=== PATIENT | male | born 1990 | race American Indian/Alaskan Native ===

== ENCOUNTER 2020-09-04 12:42 | Inpatient (IN) | payer OTHER, SELFPAY ==
--- NOTE | 2020-09-04 13:18 | XRay Report ---
CHEST 2 VIEWS INDICATION / CLINICAL INFORMATION: sob. COMPARISON: None available. FINDINGS: SUPPORT DEVICES: None. HEART / MEDIASTINUM: No significant abnormality. LUNGS / PLEURA: Pulmonary opacities are present throughout both lungs in a pattern worrisome for mult ifocal viral pneumonia. No significant pleural effusion. No pneumothorax. ADDITIONAL FINDINGS: No significant additional findings. IMPRESSION: 1. Bilateral pulmonary opacities are present, concerning for multifocal viral pneumonia. Please corre late clinically. Signer Name: Qian Sullivan MD Signed: 09/04/2020 1:14 PM Workstation Name: [id number]
[2020-09-04] MEDS ORDERED: SODIUM CHLORIDE 0.9% 1000 ML 1,000 ML IV ONE (13:20)
--- NOTE | 2020-09-04 13:37 | Emergency Department Report ---
ED General Adult HPI - General Chief complaint: Upper Respiratory Infection Stated complaint: FEVER/FATIGUE/COLD SYMPTOMS Time Seen by Provider: 09/04/20 13:18 Source: patient Mode of arrival: Ambulatory Limitations: No Limitations - History of Present Illness Initial comments: This is a 79-year old man with no prior medical history. He states he has felt ill for the past several days, coughing week and short of breath. He has had alteration of. Taste and smell. He had a Covid test this morning with pending result. He decided to present to the emergency department for the above symptoms. He was found to have a pulse oximetry of 89% in triage. High flow O2 has been ordered. -: Gradual, days(s) Associated Symptoms: denies other symptoms, shortness of breath, weakness - Related Data Allergies Allergy/AdvReac Type Severity Reaction Status Date / Time No Known Allergies Allergy Unverified 09/04/20 12:46 ED Review of Systems ROS: Stated complaint: FEVER/FATIGUE/COLD SYMPTOMS Other details as noted in HPI Constitutional: fever, weakness. denies: chills Eyes: denies: eye pain, eye discharge, vision change ENT: other (Change in taste). denies: ear pain, throat pain Respiratory: cough, shortness of breath. denies: wheezing Cardiovascular: denies: palpitations Endocrine: no symptoms reported Gastrointestinal: denies: abdominal pain, nausea, diarrhea Genitourinary: denies: urgency, dysuria Musculoskeletal: denies: back pain, joint swelling, arthralgia Skin: denies: rash, lesions Neurological: denies: headache, weakness, paresthesias Psychiatric: denies: anxiety, depression Hematological/Lymphatic: denies: easy bleeding, easy bruising ED Past Medical Hx - Past Medical History Previous Medical History?: No - Surgical History Past Surgical History?: No - Family History Family history: no significant - Social History Substance Use Type: None ED Physical Exam - General Limitations: No Limitations General appearance: alert, in no apparent distress - Head Head exam: Present: atraumatic, normocephalic - Eye Eye exam: Present: normal appearance. Absent: scleral icterus - ENT ENT exam: Present: mucous membranes moist - Neck Neck exam: Present: normal inspection - Respiratory Respiratory exam: Present: normal lung sounds bilaterally. Absent: respiratory distress - Cardiovascular Cardiovascular Exam: Present: regular rate, normal rhythm. Absent: systolic murmur, diastolic murmur, rubs, gallop - GI/Abdominal GI/Abdominal exam: Present: soft, normal bowel sounds. Absent: distended, tenderness, guarding, rebound - Rectal Rectal exam: Present: deferred - Extremities Exam Extremities exam: Present: normal inspection - Back Exam Back exam: Present: normal inspection - Neurological Exam Neurological exam: Present: alert, oriented X3, CN II-XII intact. Absent: motor sensory deficit - Psychiatric Psychiatric exam: Present: normal affect, normal mood - Skin Skin exam: Present: warm, dry, intact, normal color. Absent: rash ED Course Vital Signs 09/04/20 12:48 Temperature 99.7 F H Pulse Rate 102 H Respiratory 20 Rate Blood Pressure 146/92 O2 Sat by Pulse 91 Oximetry - Reevaluation(s) Reevaluation #1: Fluids, empiric antibiotics, consult ID, admitted by hospitalist staff Dr. Lewis. 09/04/20 14:39 ED Medical Decision Making - Lab Data Result diagrams: 09/04/20 13:30 09/04/20 13:30 Laboratory Results - last 24 hr 09/04/20 09/04/20 09/04/20 13:30 13:30 13:30 WBC 11.9 H RBC 4.86 Hgb 14.9 Hct 42.8 MCV 88 MCH 31 MCHC 35 H RDW 12.7 L Plt Count 228 Lymph % (Auto) 12.8 L [place] % (Auto) 12.2 H Eos % (Auto) 4.5 H Baso % (Auto) 0.5 Lymph # (Auto) 1.5 [place] # (Auto) 1.5 H Eos # (Auto) 0.5 H Baso # (Auto) 0.1 Seg Neutrophils % 70.0 Seg Neutrophils # 8.3 H D-Dimer Sodium 136 L Potassium 3.7 Chloride 93.9 L Carbon Dioxide 28 Anion Gap 18 BUN 17 Creatinine 2.3 H Estimated GFR 34 BUN/Creatinine Ratio 7 Glucose 94 Lactic Acid 1.00 Calcium 9.6 Magnesium Total Bilirubin 0.90 Direct Bilirubin 0.4 H Indirect Bilirubin 0.5 AST 54 H ALT 50 Alkaline Phosphatase 109 Lactate Dehydrogenase C-Reactive Protein Total Protein 7.9 Albumin 3.6 L Albumin/Globulin Ratio 0.8 09/04/20 09/04/20 13:30 13:38 WBC RBC Hgb Hct MCV MCH MCHC RDW Plt Count Lymph % (Auto) [place] % (Auto) Eos % (Auto) Baso % (Auto) Lymph # (Auto) [place] # (Auto) Eos # (Auto) Baso # (Auto) Seg Neutrophils % Seg Neutrophils # D-Dimer 570.70 H Sodium Potassium Chloride Carbon Dioxide Anion Gap BUN Creatinine Estimated GFR BUN/Creatinine Ratio Glucose Lactic Acid Calcium Magnesium 2.30 Total Bilirubin Direct Bilirubin Indirect Bilirubin AST ALT Alkaline Phosphatase Lactate Dehydrogenase 456 H C-Reactive Protein 24.20 H Total Protein Albumin Albumin/Globulin Ratio - Radiology Data Radiology results: image reviewed X-ray shows bilateral infiltrates highly suggestive of COVID-19 infection Critical care attestation.: If time is entered above; I have spent that time in minutes in the direct care of this critically ill patient, excluding procedure time. ED Disposition Clinical Impression: COVID-19 virus infection, Acute kidney injury Bilateral pneumonia Qualifiers: Pneumonia type: due to unspecified organism Lung location: unspecified part of lung Qualified Code(s): J18.9 - Pneumonia, unspecified organism Disposition: OP ADMIT IP TO THIS HOSP Is pt being admited?: Yes Does the pt Need Aspirin: Yes Condition: Stable Instructions: Bacterial Pneumonia (ED) Time of Disposition: 14:40
[2020-09-04 13:48] LABS: Basophils # (Auto) 0.1 K/mm3 (0.0-0.1); Basophils % (Auto) 0.5 % (0.0-1.8); Eosinophils # (Auto) 0.5 K/mm3 (0.0-0.4); Eosinophils % (Auto) 4.5 % (0.0-4.3); Hematocrit 42.8 % (35.5-45.6); Hemoglobin 14.9 gm/dl (11.8-15.2); Lymphocytes # (Auto) 1.5 K/mm3 (1.2-5.4); Lymphocytes % (Auto) 12.8 % (13.4-35.0); Mean Corpuscular HGB Conc 35 % (32-34); Mean Corpuscular Volume 88 fl (84-94); Monocytes # (Auto) 1.5 K/mm3 (0.0-0.8); Monocytes % (Auto) 12.2 % (0.0-7.3); Platelet Count 228 K/mm3 (140-440); Red Blood Count 4.86 M/mm3 (3.65-5.03); Red Cell Distribution Width 12.7 % (13.2-15.2)
[2020-09-04] MEDS ORDERED: AZITHROMYCIN 500 MG in SODIUM CHLORIDE 0.9% 250ML 250 ML IV ONE (14:00)
[2020-09-04 14:12] LABS: Albumin 3.6 g/dL (3.9-5); Bilirubin,Direct 0.4 mg/dL (0-0.2); Calcium 9.6 mg/dL (8.4-10.2)
[2020-09-04 14:14] LABS: C-Reactive Protein 24.2 mg/dL (0.00-1.30)
[2020-09-04] MEDS ORDERED: ONDANSETRON 4 MG/2 ML INJ IV PRN (14:26)
[2020-09-04] MEDS ORDERED: ACETAMINOPHEN 325 MG TAB PO PRN (14:26)
--- NOTE | 2020-09-04 14:33 | History and Physical Report ---
History of Present Illness Chief complaint: I feel sick, I cant breathe, I cant smell or taste anything History of present illness: 29 YO Male with obesity presents to ED for evaluation. Patient states that he had been "feeling sick" over the past 4 days with progressively worsening symptoms over the same timeframe. Patient knowledges dry cough, shortness of breath, loss of taste sense of taste, loss of sense of smell, body aches, fatigue. Patient transported to [facility] via private vehicle for further care and evaluation of the aforementioned symptoms. Patient seen and evaluated in the emergency department. Lab and imaging studies reviewed. Patient underwent chest x-ray and was found to have bilateral pneumonia. Patient also was found to have a pulse oximetry of 86% with exertion on room air which is consistent with acute hypoxemic respiratory failure. The patient was placed on high flow supplemental oxygen in the emergency department. The patient was initiated on pneumonia protocol as well as COVID-19 protocol. Coronavirus PCR was ordered and is pending at time of admission. Patient denies fever, chills, chest pain, palpitations, skin rash, recent ill contacts, or known exposure to COVID-19. No medication listed at time of admission. No prior admission for review. Infectious disease service consulted in ED. Past History Past Medical History: other (See HPI) Past Surgical History: No surgical history, Other (Reviewed) Social history: single. denies: smoking, alcohol abuse, prescription drug abuse Family history: no significant family history Medications and Allergies Allergies Allergy/AdvReac Type Severity Reaction Status Date / Time No Known Allergies Allergy Unverified 09/04/20 12:46 Active Meds: Active Medications Acetaminophen (Tylenol) 650 mg PO Q4H PRN PRN Reason: Pain MILD(1-3)/Fever >100.5/MCKENZIE Dexamethasone (Decadron) 4 mg IV ONCE ONE Stop: 09/04/20 14:30 Heparin Sodium (Porcine) (Heparin) 5,000 unit SUB-Q Q12HR MONI Azithromycin 500 mg/ Sodium (Chloride) 250 mls @ 250 mls/hr IV ONCE ONE; Protocol Stop: 09/04/20 14:59 Ceftriaxone Sodium (Rocephin/Ns 2 Gm/100 Ml) 2 gm in 100 mls @ 200 mls/hr IV Q24HR MONI; Protocol Stop: 09/07/20 23:59 Azithromycin 500 mg/ Sodium (Chloride) 250 mls @ 250 mls/hr IV Q24HR [facility]; Protocol Stop: 09/07/20 23:59 Methylprednisolone Sodium Succinate (Solu-Medrol) 40 mg IV Q8HR MONI Ondansetron HCl (Zofran) 4 mg IV Q8H PRN PRN Reason: Nausea And Vomiting Sodium Chloride (Sodium Chloride Flush Syringe 10 Ml) 10 ml IV BID MONI Sodium Chloride (Sodium Chloride Flush Syringe 10 Ml) 10 ml IV PRN PRN PRN Reason: LINE FLUSH Review of Systems Constitutional: fatigue, weakness, malaise, no weight loss, no weight gain, no fever, no chills Ears, nose, mouth and throat: no ear pain, no ear discharge, no tinnitis, no decreased hearing, no nose pain Cardiovascular: no orthopnea, no palpitations, no rapid/irregular heart beat, no edema, no syncope Respiratory: cough, cough with sputum, shortness of breath, no wheezing, no pleurisy Gastrointestinal: no nausea, no vomiting, no diarrhea, no constipation Genitourinary Male: no hematuria, no flank pain, no discharge, no urinary frequency, no urinary hesitancy Rectal: no pain, no incontinence, no bleeding Musculoskeletal: no neck stiffness, no neck pain, no arm numbness/tingling, no low back pain, no shooting leg pain Integumentary: no rash, no pruritis, no redness, no sores, no wounds Neurological: no head injury, no transient paralysis, no paralysis, no weakness, no parathesias, no seizures Psychiatric: no anxiety, no memory loss, no change in sleep habits, no sleep disturbances, no insomnia, no hypersomnia, no change in appetite, no change in libido Endocrine: no cold intolerance, no polyphagia, no excessive thirst, no polyuria, no nocturia, no excessive sweating Hematologic/Lymphatic: no easy bruising, no easy bleeding, no lymphadenopathy Allergic/Immunologic: no urticaria, no allergic rhinitis, no wheezing, no persistent infections, no anaphylaxis Exam - Constitutional Vitals: Temp Pulse Resp BP Pulse Ox 99.7 F H 102 H 20 146/92 91 09/04/20 12:48 09/04/20 12:48 09/04/20 12:48 09/04/20 12:48 09/04/20 12:48 General appearance: Present: mild distress - EENT Eyes: Present: PERRL ENT: hearing intact, clear oral mucosa - Neck Neck: Present: supple, normal ROM - Respiratory Respiratory effort: normal Respiratory: bilateral: CTA - Cardiovascular Heart Sounds: Present: S1 & S2. Absent: rub, click - Extremities Extremities: pulses symmetrical, No edema Peripheral Pulses: within normal limits - Abdominal General gastrointestinal: Present: soft, non-tender, non-distended, normal bowel sounds Male genitourinary: Present: normal - Integumentary Integumentary: Present: clear, warm, dry - Musculoskeletal Musculoskeletal: gait normal, strength equal bilaterally - Psychiatric Psychiatric: appropriate mood/affect, intact judgment & insight - Neurologic Neurologic: CNII-XII intact, moves all extremities Results - Labs CBC & Chem 7: 09/04/20 13:30 09/04/20 13:30 Labs: Abnormal lab results 09/04/20 09/04/20 09/04/20 Range/Units 13:30 13:30 13:30 WBC 11.9 H (4.5-11.0) K/mm3 MCHC 35 H (32-34) % RDW 12.7 L (13.2-15.2) % Lymph % (Auto) 12.8 L (13.4-35.0) % [place] % (Auto) 12.2 H (0.0-7.3) % Eos % (Auto) 4.5 H (0.0-4.3) % [place] # (Auto) 1.5 H (0.0-0.8) K/mm3 Eos # (Auto) 0.5 H (0.0-0.4) K/mm3 Seg Neutrophils # 8.3 H (1.8-7.7) K/mm3 D-Dimer 570.70 H (0-234) ng/mlDDU Sodium 136 L (137-145) mmol/L Chloride 93.9 L (98-107) mmol/L Creatinine 2.3 H (0.8-1.3) mg/dL Ferritin (30.0-300.0) ng/mL Direct Bilirubin 0.4 H (0-0.2) mg/dL AST 54 H (5-40) units/L Lactate Dehydrogenase (91-180) units/L C-Reactive Protein (0.00-1.30) mg/dL Albumin 3.6 L (3.9-5) g/dL 09/04/20 09/04/20 Range/Units 13:30 13:38 WBC (4.5-11.0) K/mm3 MCHC (32-34) % RDW (13.2-15.2) % Lymph % (Auto) (13.4-35.0) % [place] % (Auto) (0.0-7.3) % Eos % (Auto) (0.0-4.3) % [place] # (Auto) (0.0-0.8) K/mm3 Eos # (Auto) (0.0-0.4) K/mm3 Seg Neutrophils # (1.8-7.7) K/mm3 D-Dimer (0-234) ng/mlDDU Sodium (137-145) mmol/L Chloride (98-107) mmol/L Creatinine (0.8-1.3) mg/dL Ferritin 723.4 H (30.0-300.0) ng/mL Direct Bilirubin (0-0.2) mg/dL AST (5-40) units/L Lactate Dehydrogenase 456 H (91-180) units/L C-Reactive Protein 24.20 H (0.00-1.30) mg/dL Albumin (3.9-5) g/dL Assessment and Plan - Patient Problems (1) Acute hypoxemic respiratory failure Current Visit: Yes Status: Acute Plan to address problem: Chest x-ray, supplemental oxygen, nebulizer therapy, high flow submental oxygen, noninvasive positive pressure ventilation as clinically indicated, supportive care. Prone positioning while in bed, pulmonary toilet. (2) Bilateral pneumonia Current Visit: Yes Status: Acute Qualifiers: Pneumonia type: due to unspecified organism Lung location: unspecified part of lung Qualified Code(s): J18.9 - Pneumonia, unspecified organism Plan to address problem: Pneumonia protocol: Chest x-ray, CBC, CMP, IV antibiotic therapy, blood culture. (3) Suspected 2019 novel coronavirus infection Current Visit: Yes Status: Acute Plan to address problem: Coronavirus protocol: Infectious disease service consulted in ED, coronavirus PCR ordered and is pending at the time of admission, isolation precautions, contact precautions, IV steroid therapy, IV antibiotic therapy, prone positioning while in bed, supplemental oxygen, pulse oximetry, high flow submental oxygen. (4) Acute kidney injury (VALE) with acute tubular necrosis (ATN) Current Visit: Yes Status: Acute Plan to address problem: BMP, repeat urine output every shift, continue supportive care. Encourage free water intake. Will refrain from IV fluid resuscitation at this time due to suspected coronavirus infection. Monitor fluid balance. (5) Obesity hypoventilation syndrome Current Visit: Yes Status: Acute Plan to address problem: Balanced diet, increase physical activity at discharge, outpatient pulmonary follow-up for sleep study (6) DVT prophylaxis Current Visit: Yes Status: Acute Plan to address problem: SCD to bilateral lower extremities while in bed, prophylactic anticoagulation
[2020-09-04] MEDS ORDERED: dexAMETHasone 4 MG/ML VIAL IV ONE (15:00)
[2020-09-04] MEDS: methylPREDNISolone Sod Succinate 40 MG/1 ML INJ IV SCH ×2 (15:12→21:31)
[2020-09-04] MEDS: cefTRIAXone/NS 2 GM/100 ML 2 GM/100 ML BAG IV SCH (15:22)
[2020-09-04 17:37] LABS: Bilirubin,Urine NEG (Negative); Blood,Urine MOD (Negative); Color,Urine Yellow (Yellow)
--- NOTE | 2020-09-04 18:32 | Consultation ---
History of Present Illness - Reason for Consult Consult date: 09/04/20 - History of Present Illness 29-year-old male no past medical history admitted to the hospital complaining of coughing and shortness of breath. He notes this began a few days prior to admission was associated with dysgeusia and anosmia. He obtained an outpatient COVID-19 test in the morning of admission however he does not know the results. As his symptoms were worsening he decided to present to the emergency room. He was found to be hypoxic in the ER, was started on high flow oxygen. Afebrile with a white count of 12. Currently on ceftriaxone azithromycin. Blood cultures currently pending. Tachycardic and tachypneic. Imaging personally reviewed: Chest x-ray: Bilateral pulmonary opacities. Review of Systems: Bold if positive, otherwise negative Not obtained secondary to PPE shortage. Medications and Allergies Allergies Allergy/AdvReac Type Severity Reaction Status Date / Time No Known Allergies Allergy Unverified 09/04/20 12:46 Active Meds: Active Medications Acetaminophen (Tylenol) 650 mg PO Q4H PRN PRN Reason: Pain MILD(1-3)/Fever >100.5/MCKENZIE Heparin Sodium (Porcine) (Heparin) 5,000 unit SUB-Q Q12HR MONI Ceftriaxone Sodium (Rocephin/Ns 2 Gm/100 Ml) 2 gm in 100 mls @ 200 mls/hr IV Q24H MONI; Protocol Last Admin: 09/04/20 15:22 Dose: 200 mls/hr Documented by: Azithromycin 500 mg/ Sodium (Chloride) 250 mls @ 250 mls/hr IV Q24H MONI; Protocol Methylprednisolone Sodium Succinate (Solu-Medrol) 40 mg IV Q8H MONI Last Admin: 09/04/20 15:12 Dose: Not Given Documented by: Ondansetron HCl (Zofran) 4 mg IV Q8H PRN PRN Reason: Nausea And Vomiting Sodium Chloride (Sodium Chloride Flush Syringe 10 Ml) 10 ml IV BID MONI Sodium Chloride (Sodium Chloride Flush Syringe 10 Ml) 10 ml IV PRN PRN PRN Reason: LINE FLUSH Physical Examination - Physical Exam Narrative exam: Physical exam deferred due to PPE conservation strategy. Please refer to primary team's note. - Constitutional Vitals: Vital Signs Temp Pulse Resp BP Pulse Ox 99.7 F H 93 H 33 H 138/79 98 10/31/20 12:48 09/04/20 15:30 09/04/20 15:30 09/04/20 15:30 09/04/20 15:30 Temperature -Last 24 Hours Temperature 99.7 F Results - Labs CBC & Chem 7: 09/04/20 13:30 09/04/20 13:30 Labs: Abnormal lab results 09/04/20 09/04/20 09/04/20 Range/Units 13:30 13:30 13:30 WBC 11.9 H (4.5-11.0) K/mm3 MCHC 35 H (32-34) % RDW 12.7 L (13.2-15.2) % Lymph % (Auto) 12.8 L (13.4-35.0) % [place] % (Auto) 12.2 H (0.0-7.3) % Eos % (Auto) 4.5 H (0.0-4.3) % [place] # (Auto) 1.5 H (0.0-0.8) K/mm3 Eos # (Auto) 0.5 H (0.0-0.4) K/mm3 Seg Neutrophils # 8.3 H (1.8-7.7) K/mm3 D-Dimer 570.70 H (0-234) ng/mlDDU Sodium 136 L (137-145) mmol/L Chloride 93.9 L (98-107) mmol/L Creatinine 2.3 H (0.8-1.3) mg/dL Ferritin (30.0-300.0) ng/mL Direct Bilirubin 0.4 H (0-0.2) mg/dL AST 54 H (5-40) units/L Lactate Dehydrogenase (91-180) units/L C-Reactive Protein (0.00-1.30) mg/dL Albumin 3.6 L (3.9-5) g/dL 09/04/20 09/04/20 Range/Units 13:30 13:38 WBC (4.5-11.0) K/mm3 MCHC (32-34) % RDW (13.2-15.2) % Lymph % (Auto) (13.4-35.0) % [place] % (Auto) (0.0-7.3) % Eos % (Auto) (0.0-4.3) % [place] # (Auto) (0.0-0.8) K/mm3 Eos # (Auto) (0.0-0.4) K/mm3 Seg Neutrophils # (1.8-7.7) K/mm3 D-Dimer (0-234) ng/mlDDU Sodium (137-145) mmol/L Chloride (98-107) mmol/L Creatinine (0.8-1.3) mg/dL Ferritin 723.4 H (30.0-300.0) ng/mL Direct Bilirubin (0-0.2) mg/dL AST (5-40) units/L Lactate Dehydrogenase 456 H (91-180) units/L C-Reactive Protein 24.20 H (0.00-1.30) mg/dL Albumin (3.9-5) g/dL Assessment and Plan Cultures: Blood culture 09/04/2020 pending A/P: 29-year-old man past medical history obesity admitted with acute hypoxic respiratory failure likely secondary to COVID-19 #Acute hypoxemic respiratory failure: Likely secondary to COVID-19 infection. Currently on high flow nasal cannula. #Likely COVID-19 pneumonia: Patient presented with 4 days of symptoms, chest x-ray with diffuse bilateral infiltrates, admission hypoxia on room air. Inflammatory markers elevated. Patient is increased for micro-thrombotic and thromboembolic events. #Acute sepsis: present with leukocytosis, tachycardia, tachypnea likely secondary to COVID-19 #VALE: Likely secondary to COVID-19. Renally dose medications. Recs: -If Covid returns positive, please start remdesivir. Do not want to start empirically start without a positive test given tenuous renal function. -Continue ceftriaxone azithromycin for now given mildly elevated this may be due to acute renal failure. -Continue steroids to complete 10 days. -Obtain q48h inflammatory markers - ferritin, Ddimer, CRP, LDH -If COVID-19 positive CCP administration. -Anticoagulation per hospital protocol -Pain as able. Thank you for the consult, we will continue to follow. Dr. Durham taking over Sunday MD [facility] O: [phone] F: [phone]
[2020-09-04] MEDS: HEPARIN 5,000 UNIT/1 ML VIAL SUB-Q SCH (21:37)
[2020-09-05] MEDS: methylPREDNISolone Sod Succinate 40 MG/1 ML INJ IV SCH ×3 (05:56→21:01)
--- NOTE | 2020-09-05 08:47 | Progress Note ---
Assessment and Plan Assessment and plan: Acute hypoxic respiratory failure. Etiology likely secondary to COVID-19 infection. Continue O2 and wean as tolerated. Bilateral pneumonia. Etiology likely COVID-19 pneumonia: Patient presented with 4 days of symptoms, chest x-ray with diffuse bilateral infiltrates, admission hypoxia on room air. Inflammatory markers elevated. Patient is increased for micro-thrombotic and thromboembolic events. Sepsis. Patient meets criteria given the leukocytosis, tachycardia, tachypnea and a diagnosis of pneumonia VALE. Etiology secondary to sepsis/ATN. Renally dose medications. I suspect patient has underlying chronic kidney disease. Obesity hypoventilation syndrome. Continue O2 and monitor closely History Interval history: No new issues overnight Hospitalist Physical - Constitutional Vitals: Temp Pulse Resp BP Pulse Ox 97.5 F L 84 20 132/78 90 09/05/20 02:49 09/05/20 08:22 09/05/20 02:49 09/05/20 02:49 09/05/20 02:49 General appearance: Present: no acute distress - EENT Eyes: Present: PERRL, EOM intact ENT: hearing intact, clear oral mucosa, dentition normal - Neck Neck: Present: supple, normal ROM - Respiratory Respiratory effort: normal Respiratory: bilateral: CTA - Cardiovascular Rhythm: regular Heart Sounds: Present: S1 & S2. Absent: gallop, rub - Extremities Extremities: no ischemia, No edema, Full ROM - Abdominal General gastrointestinal: soft, non-tender, non-distended, normal bowel sounds - Integumentary Integumentary: Present: clear, warm, dry - Neurologic Neurologic: CNII-XII intact, moves all extremities Results - Labs CBC & Chem 7: 09/04/20 13:30 09/04/20 13:30 Labs: Laboratory Last Values WBC 11.9 K/mm3 (4.5-11.0) H 09/04/20 13:30 RBC 4.86 M/mm3 (3.65-5.03) 09/04/20 13:30 Hgb 14.9 gm/dl (11.8-15.2) 09/04/20 13:30 Hct 42.8 % (35.5-45.6) 09/04/20 13:30 MCV 88 fl (84-94) 09/04/20 13:30 MCH 31 pg (28-32) 09/04/20 13:30 MCHC 35 % (32-34) H 09/04/20 13:30 RDW 12.7 % (13.2-15.2) L 09/04/20 13:30 Plt Count 228 K/mm3 (140-440) 09/04/20 13:30 Lymph % (Auto) 12.8 % (13.4-35.0) L 09/04/20 13:30 [place] % (Auto) 12.2 % (0.0-7.3) H 09/04/20 13:30 Eos % (Auto) 4.5 % (0.0-4.3) H 09/04/20 13:30 Baso % (Auto) 0.5 % (0.0-1.8) 09/04/20 13:30 Lymph # (Auto) 1.5 K/mm3 (1.2-5.4) 09/04/20 13:30 [place] # (Auto) 1.5 K/mm3 (0.0-0.8) H 09/04/20 13:30 Eos # (Auto) 0.5 K/mm3 (0.0-0.4) H 09/04/20 13:30 Baso # (Auto) 0.1 K/mm3 (0.0-0.1) 09/04/20 13:30 Seg Neutrophils % 70.0 % (40.0-70.0) 09/04/20 13:30 Seg Neutrophils # 8.3 K/mm3 (1.8-7.7) H 09/04/20 13:30 D-Dimer 570.70 ng/mlDDU (0-234) H 09/04/20 13:30 Sodium 136 mmol/L (137-145) L 09/04/20 13:30 Potassium 3.7 mmol/L (3.6-5.0) 09/04/20 13:30 Chloride 93.9 mmol/L (98-107) L 09/04/20 13:30 Carbon Dioxide 28 mmol/L (22-30) 09/04/20 13:30 Anion Gap 18 mmol/L 09/04/20 13:30 BUN 17 mg/dL (9-20) 09/04/20 13:30 Creatinine 2.3 mg/dL (0.8-1.3) H 09/04/20 13:30 Estimated GFR 34 ml/min 09/04/20 13:30 BUN/Creatinine Ratio 7 % 09/04/20 13:30 Glucose 94 mg/dL (75-100) 09/04/20 13:30 Lactic Acid 1.00 mmol/L (0.7-2.0) 09/04/20 13:30 Calcium 9.6 mg/dL (8.4-10.2) 09/04/20 13:30 Magnesium 2.30 mg/dL (1.7-2.3) 09/04/20 13:38 Ferritin 723.4 ng/mL (30.0-300.0) H 09/04/20 13:30 Total Bilirubin 0.90 mg/dL (0.1-1.2) 09/04/20 13:30 Direct Bilirubin 0.4 mg/dL (0-0.2) H 09/04/20 13:30 Indirect Bilirubin 0.5 mg/dL 09/04/20 13:30 AST 54 units/L (5-40) H 09/04/20 13:30 ALT 50 units/L (7-56) 09/04/20 13:30 Alkaline Phosphatase 109 units/L (35-129) 09/04/20 13:30 Lactate Dehydrogenase 456 units/L (91-180) H 09/04/20 13:38 C-Reactive Protein 24.20 mg/dL (0.00-1.30) H 09/04/20 13:38 Total Protein 7.9 g/dL (6.3-8.2) 09/04/20 13:30 Albumin 3.6 g/dL (3.9-5) L 09/04/20 13:30 Albumin/Globulin Ratio 0.8 % 09/04/20 13:30 Procalcitonin 0.26 ng/mL (<0.15) 09/04/20 13:30 Urine Color Yellow (Yellow) 09/04/20 17:25 Urine Turbidity Clear (Clear) 09/04/20 17:25 Urine pH 6.0 (5.0-7.0) 09/04/20 17:25 Ur Specific [place] 1.008 (1.003-1.030) 09/04/20 17:25 Urine Protein 30 mg/dl mg/dL (Negative) 09/04/20 17:25 Urine Glucose (UA) Neg mg/dL (Negative) 09/04/20 17:25 Urine Ketones Neg mg/dL (Negative) 09/04/20 17:25 Urine Blood Mod (Negative) 09/04/20 17:25 Urine Nitrite Neg (Negative) 09/04/20 17:25 Urine Bilirubin Neg (Negative) 09/04/20 17:25 Urine Urobilinogen 2.0 mg/dL (<2.0) 09/04/20 17:25 Ur Leukocyte Esterase Neg (Negative) 09/04/20 17:25 Urine WBC (Auto) 3.0 /HPF (0.0-6.0) 09/04/20 17:25 Urine RBC (Auto) 1.0 /HPF (0.0-6.0) 09/04/20 17:25 Microbiology: Microbiology 09/04/20 13:37 Peripheral/Venous Blood Culture - Preliminary Culture in Progress 09/04/20 13:30 Peripheral/Venous Blood Culture - Preliminary Culture in Progress Barriga/IV: IV Catheter Type [Left Hand] INT / Saline Lock Active Medications - Current Medications Current Medications: Generic Name Dose Route Start Last Admin Trade Name Freq PRN Reason Stop Dose Admin Acetaminophen 650 mg 09/04/20 14:26 09/04/20 18:37 Tylenol PO 650 mg Q4H PRN Administration Pain MILD(1-3)/Fever >100.5/MCKENZIE Heparin Sodium (Porcine) 5,000 unit 09/04/20 22:00 09/04/20 21:37 Heparin SUB-Q 5,000 unit Q12HR MONI Administration Ceftriaxone Sodium 2 gm in 100 mls @ 200 mls/hr 09/04/20 15:00 09/04/20 15:22 Rocephin/Ns 2 Gm/100 Ml IV 200 mls/hr Q24H MONI Administration Protocol Azithromycin 500 mg/ Sodium 250 mls @ 250 mls/hr 09/05/20 10:00 Chloride IV Q24H MONI Protocol Methylprednisolone Sodium Succinate 40 mg 09/04/20 14:00 09/05/20 05:56 Solu-Medrol IV 40 mg Q8H MONI Administration Ondansetron HCl 4 mg 09/04/20 14:26 Zofran IV Q8H PRN Nausea And Vomiting Sodium Chloride 10 ml 09/04/20 22:00 09/04/20 21:32 Sodium Chloride Flush Syringe 10 Ml IV 10 ml BID MONI Administration Sodium Chloride 10 ml 09/04/20 14:26 Sodium Chloride Flush Syringe 10 Ml IV PRN PRN LINE FLUSH
[2020-09-05] MEDS: AZITHROMYCIN 500 MG in SODIUM CHLORIDE 0.9% 250ML 250 ML IV SCH (10:19)
[2020-09-05] MEDS: HEPARIN 5,000 UNIT/1 ML VIAL SUB-Q SCH ×2 (10:19→21:01)
[2020-09-05 10:38] LABS: Basophils # (Auto) 0.1 K/mm3 (0.0-0.1); Basophils % (Auto) 0.6 % (0.0-1.8); Hematocrit 42.4 % (35.5-45.6); Hemoglobin 14.4 gm/dl (11.8-15.2); Lymphocytes # (Auto) 0.8 K/mm3 (1.2-5.4); Lymphocytes % (Auto) 5.6 % (13.4-35.0); Mean Corpuscular HGB Conc 34 % (32-34); Mean Corpuscular Volume 90 fl (84-94); Monocytes # (Auto) 0.6 K/mm3 (0.0-0.8); Platelet Count 254 K/mm3 (140-440); Red Blood Count 4.72 M/mm3 (3.65-5.03)
[2020-09-05 10:55] LABS: Calcium 9.4 mg/dL (8.4-10.2)
[2020-09-05] MEDS: cefTRIAXone/NS 2 GM/100 ML 2 GM/100 ML BAG IV SCH (14:03)
[2020-09-06] MEDS: methylPREDNISolone Sod Succinate 40 MG/1 ML INJ IV SCH (06:13)
[2020-09-06 07:58] LABS: Calcium 9.5 mg/dL (8.4-10.2)
--- NOTE | 2020-09-06 08:21 | Progress Note ---
Assessment and Plan Assessment and plan: Acute hypoxic respiratory failure. Etiology likely secondary to COVID-19 infection. Continue O2 and wean as tolerated. Bilateral pneumonia. Etiology likely COVID-19 pneumonia: Patient presented with 4 days of symptoms, chest x-ray with diffuse bilateral infiltrates, admission hypoxia on room air. Inflammatory markers elevated. Patient is increased for micro-thrombotic and thromboembolic events. Sepsis. Patient meets criteria given the leukocytosis, tachycardia, tachypnea and a diagnosis of pneumonia VALE. Etiology secondary to sepsis/ATN. Renally dose medications. I suspect patient has underlying chronic kidney disease. Obesity hypoventilation syndrome. Continue O2 and monitor closely 09/06/30. Patient's creatinine remains elevated. I suspect patient has underlying CKD. Check renal ultrasound and consult nephrology for further evaluation. Covid testing found to be negative. Discontinue IV steroids. Continue antibiotics for pneumonia per ID recommendations History Interval history: No new issues overnight Hospitalist Physical - Constitutional Vitals: Temp Pulse Resp BP Pulse Ox 98.2 F 79 18 145/75 95 09/05/20 21:22 09/05/20 21:22 09/05/20 21:22 09/05/20 21:22 09/06/20 08:16 General appearance: Present: no acute distress - EENT Eyes: Present: PERRL, EOM intact ENT: hearing intact, clear oral mucosa, dentition normal - Neck Neck: Present: supple, normal ROM - Respiratory Respiratory effort: normal Respiratory: bilateral: CTA - Cardiovascular Rhythm: regular Heart Sounds: Present: S1 & S2. Absent: gallop, rub - Extremities Extremities: no ischemia, No edema, Full ROM - Abdominal General gastrointestinal: soft, non-tender, non-distended, normal bowel sounds - Integumentary Integumentary: Present: clear, warm, dry - Neurologic Neurologic: CNII-XII intact, moves all extremities Results - Labs CBC & Chem 7: 09/05/20 04:00 09/06/20 07:06 Labs: Laboratory Last Values WBC 15.2 K/mm3 (4.5-11.0) H 09/05/20 04:00 RBC 4.72 M/mm3 (3.65-5.03) 09/05/20 04:00 Hgb 14.4 gm/dl (11.8-15.2) 09/05/20 04:00 Hct 42.4 % (35.5-45.6) 09/05/20 04:00 MCV 90 fl (84-94) 09/05/20 04:00 MCH 31 pg (28-32) 09/05/20 04:00 MCHC 34 % (32-34) 09/05/20 04:00 RDW 13.0 % (13.2-15.2) L 09/05/20 04:00 Plt Count 254 K/mm3 (140-440) 09/05/20 04:00 Lymph % (Auto) 5.6 % (13.4-35.0) L 09/05/20 04:00 [place] % (Auto) 4.0 % (0.0-7.3) 09/05/20 04:00 Eos % (Auto) 0.0 % (0.0-4.3) 09/05/20 04:00 Baso % (Auto) 0.6 % (0.0-1.8) 09/05/20 04:00 Lymph # (Auto) 0.8 K/mm3 (1.2-5.4) L 09/05/20 04:00 [place] # (Auto) 0.6 K/mm3 (0.0-0.8) 09/05/20 04:00 Eos # (Auto) 0.0 K/mm3 (0.0-0.4) 09/05/20 04:00 Baso # (Auto) 0.1 K/mm3 (0.0-0.1) 09/05/20 04:00 Seg Neutrophils % 89.8 % (40.0-70.0) H 09/05/20 04:00 Seg Neutrophils # 13.7 K/mm3 (1.8-7.7) H 09/05/20 04:00 D-Dimer 570.70 ng/mlDDU (0-234) H 09/04/20 13:30 Sodium 138 mmol/L (137-145) 09/06/20 07:06 Potassium 3.9 mmol/L (3.6-5.0) 09/06/20 07:06 Chloride 100.3 mmol/L (98-107) 09/06/20 07:06 Carbon Dioxide 26 mmol/L (22-30) 09/06/20 07:06 Anion Gap 16 mmol/L 09/06/20 07:06 BUN 28 mg/dL (9-20) H 09/06/20 07:06 Creatinine 2.0 mg/dL (0.8-1.3) H 09/06/20 07:06 Estimated GFR 49 ml/min 09/06/20 07:06 BUN/Creatinine Ratio 14 % 09/06/20 07:06 Glucose 142 mg/dL (75-100) H 09/06/20 07:06 Lactic Acid 1.00 mmol/L (0.7-2.0) 09/04/20 13:30 Calcium 9.5 mg/dL (8.4-10.2) 09/06/20 07:06 Magnesium 2.30 mg/dL (1.7-2.3) 09/04/20 13:38 Ferritin 723.4 ng/mL (30.0-300.0) H 09/04/20 13:30 Total Bilirubin 0.90 mg/dL (0.1-1.2) 09/04/20 13:30 Direct Bilirubin 0.4 mg/dL (0-0.2) H 09/04/20 13:30 Indirect Bilirubin 0.5 mg/dL 09/04/20 13:30 AST 54 units/L (5-40) H 09/04/20 13:30 ALT 50 units/L (7-56) 09/04/20 13:30 Alkaline Phosphatase 109 units/L (35-129) 09/04/20 13:30 Lactate Dehydrogenase 456 units/L (91-180) H 09/04/20 13:38 C-Reactive Protein 24.20 mg/dL (0.00-1.30) H 09/04/20 13:38 Total Protein 7.9 g/dL (6.3-8.2) 09/04/20 13:30 Albumin 3.6 g/dL (3.9-5) L 09/04/20 13:30 Albumin/Globulin Ratio 0.8 % 09/04/20 13:30 Procalcitonin 0.26 ng/mL (<0.15) 09/04/20 13:30 Urine Color Yellow (Yellow) 09/04/20 17:25 Urine Turbidity Clear (Clear) 09/04/20 17:25 Urine pH 6.0 (5.0-7.0) 09/04/20 17:25 Ur Specific [place] 1.008 (1.003-1.030) 09/04/20 17:25 Urine Protein 30 mg/dl mg/dL (Negative) 09/04/20 17:25 Urine Glucose (UA) Neg mg/dL (Negative) 09/04/20 17:25 Urine Ketones Neg mg/dL (Negative) 09/04/20 17:25 Urine Blood Mod (Negative) 09/04/20 17:25 Urine Nitrite Neg (Negative) 09/04/20 17:25 Urine Bilirubin Neg (Negative) 09/04/20 17:25 Urine Urobilinogen 2.0 mg/dL (<2.0) 09/04/20 17:25 Ur Leukocyte Esterase Neg (Negative) 09/04/20 17:25 Urine WBC (Auto) 3.0 /HPF (0.0-6.0) 09/04/20 17:25 Urine RBC (Auto) 1.0 /HPF (0.0-6.0) 09/04/20 17:25 Coronavirus (PCR) Negative (Negative) 09/05/20 10:08 Microbiology: Microbiology 09/04/20 13:37 Peripheral/Venous Blood Culture - Preliminary NO GROWTH AFTER 24 HOURS 09/04/20 13:30 Peripheral/Venous Blood Culture - Preliminary NO GROWTH AFTER 24 HOURS Barriga/IV: Voiding Method Toilet IV Catheter Type [Left Hand] INT / Saline Lock Active Medications - Current Medications Current Medications: Generic Name Dose Route Start Last Admin Trade Name Freq PRN Reason Stop Dose Admin Acetaminophen 650 mg 09/04/20 14:26 09/04/20 18:37 Tylenol PO 650 mg Q4H PRN Administration Pain MILD(1-3)/Fever >100.5/MCKENZIE Heparin Sodium (Porcine) 5,000 unit 09/04/20 22:00 09/05/20 21:01 Heparin SUB-Q 5,000 unit Q12HR MONI Administration Ceftriaxone Sodium 2 gm in 100 mls @ 200 mls/hr 09/04/20 15:00 09/05/20 14:03 Rocephin/Ns 2 Gm/100 Ml IV 200 mls/hr Q24H MONI Administration Protocol Azithromycin 500 mg/ Sodium 250 mls @ 250 mls/hr 09/05/20 10:00 09/05/20 10:19 Chloride IV 250 mls/hr Q24H MONI Administration Protocol Methylprednisolone Sodium Succinate 40 mg 09/04/20 14:00 09/06/20 06:13 Solu-Medrol IV 40 mg Q8H MONI Administration Ondansetron HCl 4 mg 09/04/20 14:26 Zofran IV Q8H PRN Nausea And Vomiting Sodium Chloride 10 ml 09/04/20 22:00 09/05/20 21:01 Sodium Chloride Flush Syringe 10 Ml IV 10 ml BID MONI Administration Sodium Chloride 10 ml 09/04/20 14:26 Sodium Chloride Flush Syringe 10 Ml IV PRN PRN LINE FLUSH
[2020-09-06 08:48] LABS: Basophils % (Auto) 0.2 % (0.0-1.8); Hematocrit 42.7 % (35.5-45.6); Lymphocytes # (Auto) 1.2 K/mm3 (1.2-5.4); Lymphocytes % (Auto) 6.2 % (13.4-35.0); Mean Corpuscular HGB Conc 33 % (32-34); Mean Corpuscular Volume 90 fl (84-94); Monocytes # (Auto) 1.3 K/mm3 (0.0-0.8); Monocytes % (Auto) 6.5 % (0.0-7.3); Platelet Count 300 K/mm3 (140-440); Red Blood Count 4.75 M/mm3 (3.65-5.03); Red Cell Distribution Width 13.4 % (13.2-15.2)
--- NOTE | 2020-09-06 09:34 | Consultation ---
History of Present Illness - Reason for Consult Consult date: 09/07/20 acute renal failure - History of Present Illness This is a 29 year old man with obesity who presented to ED for evaluation, feeling sick, fatigue, dyspnea. Being treated for respiratory failure with pneumonia and COVID protocol. He denies any prior knowledge of kidney disease and notes that he is currently feeling much better after 2 days in hospital. Notes normal urination, no edema currently. Denies dysuria, hematuria. No skin rashes. Past History Past Medical History: other (See HPI) Past Surgical History: No surgical history, Other (Reviewed) Social history: single. denies: smoking, alcohol abuse, prescription drug abuse Family history: no significant family history Medications and Allergies Allergies Allergy/AdvReac Type Severity Reaction Status Date / Time No Known Allergies Allergy Unverified 09/04/20 12:46 Home Medications Medication Instructions Recorded Confirmed Last Taken Type No Known Home Medications [No 09/05/20 09/05/20 Unknown History Reported Home Medications] Active Meds: Active Medications Acetaminophen (Tylenol) 650 mg PO Q4H PRN PRN Reason: Pain MILD(1-3)/Fever >100.5/MCKENZIE Last Admin: 09/04/20 18:37 Dose: 650 mg Documented by: Heparin Sodium (Porcine) (Heparin) 5,000 unit SUB-Q Q12HR MONI Last Admin: 09/05/20 21:01 Dose: 5,000 unit Documented by: Ceftriaxone Sodium (Rocephin/Ns 2 Gm/100 Ml) 2 gm in 100 mls @ 200 mls/hr IV Q2 4H MONI; Protocol Last Admin: 09/05/20 14:03 Dose: 200 mls/hr Documented by: Azithromycin 500 mg/ Sodium (Chloride) 250 mls @ 250 mls/hr IV Q24H MONI; Protocol Last Admin: 09/05/20 10:19 Dose: 250 mls/hr Documented by: Ondansetron HCl (Zofran) 4 mg IV Q8H PRN PRN Reason: Nausea And Vomiting Sodium Chloride (Sodium Chloride Flush Syringe 10 Ml) 10 ml IV BID MONI Last Admin: 09/05/20 21:01 Dose: 10 ml Documented by: Sodium Chloride (Sodium Chloride Flush Syringe 10 Ml) 10 ml IV PRN PRN PRN Reason: LINE FLUSH Review of Systems All systems: negative (as per HPI) Exam - Vital Signs Vital signs: Vital Signs Temp Pulse Resp BP Pulse Ox 99.7 F H 102 H 20 146/92 91 09/04/20 12:48 09/04/20 12:48 09/04/20 12:48 09/04/20 12:48 09/04/20 12:48 - Physical Exam Narrative exam: Constitutional: no acute distress Head: NC/AT Neck: supple Lungs: clear to auscultation, on NC CV: RRR, no M/R/G Abdomen: soft, non-tender, bowel sounds present Back: nontender Extremities: no edema, pulses WNL Skin: intact Neuro: no focal deficits, alert and oriented x4 Results - Lab Results 09/07/20 08:02 09/06/20 07:06 Most recent lab results Calcium 9.5 mg/dL (8.4-10.2) 09/06/20 07:06 Magnesium 2.30 mg/dL (1.7-2.3) 09/04/20 13:38 Assessment and Plan # Acute Kidney Injury: no clear baseline, does have risk factors for CKD including obesity. Creatinine has been stable around 2.0/2.1, suspect pre-renal and/or tubular injury in setting of acute illness. - supportive measures including IVF as tolerated - strict Is/Os - BP stable - sending serologies including HIV, consider biopsy based on serologies - send PTH to help with chronicity - UP/C WNL, urinalysis reviewed with moderate blood - ultrasound reviewed, no acute obstruction noted, increased echogenicity which would be unusual for his age but may have underlying CKD - avoid nephrotoxins - daily labs (pending today) - no indication for renal replacement therapy acutely # Acute hypoxic respiratory failure: pneumonia vs COVID-19, antibiotics per primary/ID # Sepsis, Leukocytosis: BP stable # obesity hypoventilation syndrome Thank you for this consult, we will continue to follow closely with you for renal related issues.
--- NOTE | 2020-09-06 09:53 | Progress Note ---
Assessment and Plan Cultures: Blood culture 09/04/2020 no growth today SARS-CoV-2 PCR negative A/P: 29-year-old man past medical history obesity admitted with acute hypoxic respiratory failure likely secondary to COVID-19 #Acute hypoxemic respiratory failure: Secondary to bilateral pneumonia, currently on 3 L nasal cannula #Bilateral pneumonia: CAP vs COVID?. Patient presented with 4 days of symptoms, chest x-ray with diffuse bilateral infiltrates, admission hypoxia on room air. Inflammatory markers elevated. SARS-CoV-2 PCR negative. Procalcitonin 0.2. #Acute sepsis: present with leukocytosis, tachycardia, tachypnea likely secondary pneumonia #VALE: Likely secondary to sepsis. Renally dose medications. Recs: -Continue ceftriaxone azithromycin total 5 days -Repeat SARS COV2 PCR -HIV test -legionella urine ag will follow MD [facility] ([facility]) Office [phone] Subjective Date of service: 09/06/20 Principal diagnosis: pneumonia Interval history: Patient reports shortness of breath, reminiscent 3 L nasal cannula, no fever Objective - Exam Narrative Exam: General appearance: Alert in NAD pleasant Eyes: anicteric sclerae, moist conjunctivae; no lid-lag; PERRLA HENT: Normocephalic, Atraumatic; normal external ears, nares open, oropharynx clear. Neck: supple, tracheal midline, no JVD Lungs: Bilateral wheezing CV: RRR no murmur Abdomen: Soft, non-tender; no masses or hepatosplenomegaly Extremities: no edema, no cyanosis Skin: No rash. Psych: no agitated Neuro: alert and oriented x 3. Moving all extermities - Constitutional Vitals: Vital Signs Temp Pulse Resp BP Pulse Ox 98.2 F 79 18 145/75 95 09/05/20 21:22 09/05/20 21:22 09/05/20 21:22 09/05/20 21:22 09/06/20 08:16 Temperature -Last 24 Hours Temperature 98.2 F Temperature 98.0 F Temperature 97.9 F - Labs CBC & Chem 7: 09/06/20 Unknown 09/06/20 07:06 Labs: Abnormal lab results 09/05/20 09/05/20 09/06/20 Range/Units 04:00 04:00 07:06 WBC 15.2 H (4.5-11.0) K/mm3 RDW 13.0 L (13.2-15.2) % Lymph % (Auto) 5.6 L (13.4-35.0) % Lymph # (Auto) 0.8 L (1.2-5.4) K/mm3 [place] # (Auto) (0.0-0.8) K/mm3 Seg Neutrophils % 89.8 H (40.0-70.0) % Seg Neutrophils # 13.7 H (1.8-7.7) K/mm3 Sodium 136 L (137-145) mmol/L Chloride 95.1 L (98-107) mmol/L BUN 22 H 28 H (9-20) mg/dL Creatinine 2.1 H 2.0 H (0.8-1.3) mg/dL Glucose 161 H 142 H (75-100) mg/dL 09/06/20 Range/Units Unknown WBC 19.8 H (4.5-11.0) K/mm3 RDW (13.2-15.2) % Lymph % (Auto) 6.2 L (13.4-35.0) % Lymph # (Auto) (1.2-5.4) K/mm3 [place] # (Auto) 1.3 H (0.0-0.8) K/mm3 Seg Neutrophils % 87.1 H (40.0-70.0) % Seg Neutrophils # 17.2 H (1.8-7.7) K/mm3 Sodium (137-145) mmol/L Chloride (98-107) mmol/L BUN (9-20) mg/dL Creatinine (0.8-1.3) mg/dL Glucose (75-100) mg/dL
[2020-09-06] MEDS: HEPARIN 5,000 UNIT/1 ML VIAL SUB-Q SCH ×2 (10:52→22:06)
[2020-09-06] MEDS: AZITHROMYCIN 500 MG in SODIUM CHLORIDE 0.9% 250ML 250 ML IV SCH (10:53)
--- NOTE | 2020-09-06 11:20 | Ultrasound Report ---
ULTRASOUND RENAL INDICATION / CLINICAL INFORMATION: ARF. COMPARISON: None available. FINDINGS: RIGHT KIDNEY: Length = 11.2 cm. [normal > 9 cm] - Parenchymal Thickness = 1.5 cm. [normal > 1.5 cm] - Echogenicity: Increased - Hydronephrosis: None. - Cyst or mass: No significant abnormality. - Stones: None seen. LEFT KIDNEY: Length = 11.4 cm. [normal > 9 cm] - Parenchymal Thickness = 1.8 cm. [normal > 1.5 cm] - Echogenicity: Increased - Hydronephrosis: None. - Cyst or mass: No significant abnormality. - Stones: None seen. URINARY BLADDER: No significant abnormality. FREE FLUID: None. ADDITIONAL FINDINGS: None. IMPRESSION: Normal size but echogenic kidneys consistent with nonspecific renal parenchymal disease. No obstruct ethel uropathy. Signer Name: Amador Acosta Jr, MD Signed: 09/06/2020 11:16 AM Workstation Name: [id number]
[2020-09-06] MEDS: cefTRIAXone/NS 2 GM/100 ML 2 GM/100 ML BAG IV SCH (14:27)
[2020-09-06 17:18] LABS: Creatinine,Urine 79.8 mg/dL (0.1-20.0); Protein/Creatinine Ratio,Urine 0.1
--- NOTE | 2020-09-07 07:27 | Progress Note ---
Assessment and Plan Assessment and plan: Acute hypoxic respiratory failure. Was suspected to be COVID-19 infection. Continue O2 and wean as tolerated. Covid antigen and antibody test is negative Bilateral pneumonia. Etiology likely COVID-19 pneumonia: Patient presented with 4 days of symptoms, chest x-ray with diffuse bilateral infiltrates, admission hypoxia on room air. Inflammatory markers elevated. Patient is increased for micro-thrombotic and thromboembolic events. Sepsis. Patient meets criteria given the leukocytosis, tachycardia, tachypnea and a diagnosis of pneumonia. Morning labs are not done and he went to follow lab results VALE. Etiology secondary to sepsis/ATN. Renally dose medications. I suspect patient has underlying chronic kidney disease. Nephrology consult appreciated. Will follow BMP from this morning. Obesity hypoventilation syndrome. Continue O2 and monitor closely 09/06/30. Patient's creatinine remains elevated. I suspect patient has underlying CKD. Ultrasound is negative Covid testing found to be negative. Continue antibiotics for pneumonia per ID recommendations 09/07/2020; creatinine is trending down 1.4 this morning. WBC is trending down 15 K this morning ultrasound is negative. Covid antigen and antibody test is negative. Patient will be likely discharged tomorrow. We will stop PO Levaquin. History Interval history: Patient was seen and evaluated at bedside Patient has still some shortness of breath and is on 2 L of oxygen Hospitalist Physical - Physical exam Narrative exam: Not in cardiopulmonary distress. The patient appeared well nourished and normally developed. Vital signs as documented. Head exam is unremarkable. No scleral icterus . Neck is without jugular venous distension, thyromegaly, or carotid bruits. Lungs are clear to auscultation. Cardiac exam reveals regular rate and Rhythm. Abdominal exam reveals normal bowel sounds, nontender, no organomegaly. Extremities are nonedematous and both femoral and pedal pulses are normal. 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 No focal weakness. - Constitutional Vitals: Temp Pulse Resp BP Pulse Ox 98.9 F 63 18 118/70 97 09/07/20 04:47 09/07/20 04:47 09/07/20 04:47 09/07/20 04:47 09/07/20 04:47 General appearance: Present: no acute distress Results - Labs CBC & Chem 7: 09/07/20 08:02 09/07/20 08:02 Labs: Laboratory Last Values WBC 19.8 K/mm3 (4.5-11.0) H 09/06/20 Unknown RBC 4.75 M/mm3 (3.65-5.03) 09/06/20 Unknown Hgb 14.0 gm/dl (11.8-15.2) 09/06/20 Unknown Hct 42.7 % (35.5-45.6) 09/06/20 Unknown MCV 90 fl (84-94) 09/06/20 Unknown MCH 30 pg (28-32) 09/06/20 Unknown MCHC 33 % (32-34) 09/06/20 Unknown RDW 13.4 % (13.2-15.2) 09/06/20 Unknown Plt Count 300 K/mm3 (140-440) 09/06/20 Unknown Lymph % (Auto) 6.2 % (13.4-35.0) L 09/06/20 Unknown [place] % (Auto) 6.5 % (0.0-7.3) 09/06/20 Unknown Eos % (Auto) 0.0 % (0.0-4.3) 09/06/20 Unknown Baso % (Auto) 0.2 % (0.0-1.8) 09/06/20 Unknown Lymph # (Auto) 1.2 K/mm3 (1.2-5.4) 09/06/20 Unknown [place] # (Auto) 1.3 K/mm3 (0.0-0.8) H 09/06/20 Unknown Eos # (Auto) 0.0 K/mm3 (0.0-0.4) 09/06/20 Unknown Baso # (Auto) 0.0 K/mm3 (0.0-0.1) 09/06/20 Unknown Seg Neutrophils % 87.1 % (40.0-70.0) H 09/06/20 Unknown Seg Neutrophils # 17.2 K/mm3 (1.8-7.7) H 09/06/20 Unknown D-Dimer 570.70 ng/mlDDU (0-234) H 09/04/20 13:30 Sodium 138 mmol/L (137-145) 09/06/20 07:06 Potassium 3.9 mmol/L (3.6-5.0) 09/06/20 07:06 Chloride 100.3 mmol/L (98-107) 09/06/20 07:06 Carbon Dioxide 26 mmol/L (22-30) 09/06/20 07:06 Anion Gap 16 mmol/L 09/06/20 07:06 BUN 28 mg/dL (9-20) H 09/06/20 07:06 Creatinine 2.0 mg/dL (0.8-1.3) H 09/06/20 07:06 Estimated GFR 49 ml/min 09/06/20 07:06 BUN/Creatinine Ratio 14 % 09/06/20 07:06 Glucose 142 mg/dL (75-100) H 09/06/20 07:06 Lactic Acid 1.00 mmol/L (0.7-2.0) 09/04/20 13:30 Calcium 9.5 mg/dL (8.4-10.2) 09/06/20 07:06 Magnesium 2.30 mg/dL (1.7-2.3) 09/04/20 13:38 Ferritin 723.4 ng/mL (30.0-300.0) H 09/04/20 13:30 Total Bilirubin 0.90 mg/dL (0.1-1.2) 09/04/20 13:30 Direct Bilirubin 0.4 mg/dL (0-0.2) H 09/04/20 13:30 Indirect Bilirubin 0.5 mg/dL 09/04/20 13:30 AST 54 units/L (5-40) H 09/04/20 13:30 ALT 50 units/L (7-56) 09/04/20 13:30 Alkaline Phosphatase 109 units/L (35-129) 09/04/20 13:30 Lactate Dehydrogenase 456 units/L (91-180) H 09/04/20 13:38 C-Reactive Protein 24.20 mg/dL (0.00-1.30) H 09/04/20 13:38 Total Protein 7.9 g/dL (6.3-8.2) 09/04/20 13:30 Albumin 3.6 g/dL (3.9-5) L 09/04/20 13:30 Albumin/Globulin Ratio 0.8 % 09/04/20 13:30 Procalcitonin 0.15 ng/mL (<0.15) 09/06/20 10:13 Urine Color Yellow (Yellow) 09/04/20 17:25 Urine Turbidity Clear (Clear) 09/04/20 17:25 Urine pH 6.0 (5.0-7.0) 09/04/20 17:25 Ur Specific [place] 1.008 (1.003-1.030) 09/04/20 17:25 Urine Protein 30 mg/dl mg/dL (Negative) 09/04/20 17:25 Urine Glucose (UA) Neg mg/dL (Negative) 09/04/20 17:25 Urine Ketones Neg mg/dL (Negative) 09/04/20 17:25 Urine Blood Mod (Negative) 09/04/20 17:25 Urine Nitrite Neg (Negative) 09/04/20 17:25 Urine Bilirubin Neg (Negative) 09/04/20 17:25 Urine Urobilinogen 2.0 mg/dL (<2.0) 09/04/20 17:25 Ur Leukocyte Esterase Neg (Negative) 09/04/20 17:25 Urine WBC (Auto) 3.0 /HPF (0.0-6.0) 09/04/20 17:25 Urine RBC (Auto) 1.0 /HPF (0.0-6.0) 09/04/20 17:25 Urine Creatinine 79.8 mg/dL (0.1-20.0) H 09/06/20 Unknown Protein/Creatinin Ratio 0.10 09/06/20 Unknown Urine Total Protein 8 mg/dL (5-11.8) 09/06/20 Unknown Coronavirus (PCR) Negative (Negative) 09/05/20 10:08 Influenza A (Rapid) Negative (Negative) 09/06/20 11:00 Influenza A (RT-PCR) Negative (Negative) 09/06/20 11:00 Influenza B (Rapid) Negative (Negative) 09/06/20 11:00 Influenza B (RT-PCR) Negative (Negative) 09/06/20 11:00 SARS-CoV-2 IgG Ab Nonreactive (NonReactive) 09/06/20 10:13 Microbiology: Microbiology 09/04/20 13:37 Peripheral/Venous Blood Culture - Preliminary NO GROWTH AFTER 48 HOURS 09/04/20 13:30 Peripheral/Venous Blood Culture - Preliminary NO GROWTH AFTER 48 HOURS Barriga/IV: Voiding Method Toilet IV Catheter Type [Left Hand] INT / Saline Lock Active Medications - Current Medications Current Medications: Generic Name Dose Route Start Last Admin Trade Name Freq PRN Reason Stop Dose Admin Acetaminophen 650 mg 09/04/20 14:26 09/04/20 18:37 Tylenol PO 650 mg Q4H PRN Administration Pain MILD(1-3)/Fever >100.5/MCKENZIE Heparin Sodium (Porcine) 5,000 unit 09/04/20 22:00 09/06/20 22:06 Heparin SUB-Q 5,000 unit Q12HR MONI Administration Ceftriaxone Sodium 2 gm in 100 mls @ 200 mls/hr 09/04/20 15:00 09/06/20 14:27 Rocephin/Ns 2 Gm/100 Ml IV 09/08/20 15:29 200 mls/hr Q24H MONI Administration Protocol Azithromycin 500 mg/ Sodium 250 mls @ 250 mls/hr 09/05/20 10:00 09/06/20 10:53 Chloride IV 09/08/20 10:59 250 mls/hr Q24H MONI Administration Protocol Ondansetron HCl 4 mg 09/04/20 14:26 Zofran IV Q8H PRN Nausea And Vomiting Sodium Chloride 10 ml 09/04/20 22:00 09/06/20 21:07 Sodium Chloride Flush Syringe 10 Ml IV 10 ml BID MONI Administration Sodium Chloride 10 ml 09/04/20 14:26 Sodium Chloride Flush Syringe 10 Ml IV PRN PRN LINE FLUSH
[2020-09-07 08:50] LABS: Basophils # (Auto) 0.1 K/mm3 (0.0-0.1); Basophils % (Auto) 0.3 % (0.0-1.8); Eosinophils # (Auto) 0.1 K/mm3 (0.0-0.4); Eosinophils % (Auto) 0.4 % (0.0-4.3); Hematocrit 42.3 % (35.5-45.6); Hemoglobin 14.2 gm/dl (11.8-15.2); Lymphocytes # (Auto) 3.6 K/mm3 (1.2-5.4); Lymphocytes % (Auto) 23.6 % (13.4-35.0); Mean Corpuscular HGB Conc 34 % (32-34); Mean Corpuscular Volume 90 fl (84-94); Monocytes # (Auto) 1.9 K/mm3 (0.0-0.8); Monocytes % (Auto) 12.7 % (0.0-7.3); Platelet Count 314 K/mm3 (140-440); Red Cell Distribution Width 13.1 % (13.2-15.2)
[2020-09-07 09:17] LABS: BUN/Creatinine Ratio 15; Blood Urea Nitrogen 22 mg/dL (9-20); Calcium 9.1 mg/dL (8.4-10.2); Hemolysis Index 1
[2020-09-07] MEDS: HEPARIN 5,000 UNIT/1 ML VIAL SUB-Q SCH ×2 (09:17→21:15)
--- NOTE | 2020-09-07 09:45 | Progress Note ---
Assessment and Plan Cultures: Blood culture 09/04/2020 no growth today SARS-CoV-2 PCR negative A/P: 29-year-old man past medical history obesity admitted with acute hypoxic respiratory failure likely secondary to COVID-19 #Acute hypoxemic respiratory failure: Secondary to bilateral pneumonia, currently on 3 L nasal cannula #Bilateral pneumonia: CAP vs COVID?. Patient presented with 4 days of symptoms, chest x-ray with diffuse bilateral infiltrates, admission hypoxia on room air. Inflammatory markers elevated. SARS-CoV-2 PCR negative. Procalcitonin 0.2--> 0.1. SARS-CoV-2 IgG negative. #Acute sepsis: present with leukocytosis, tachycardia, tachypnea likely secondary pneumonia #VALE: Likely secondary to sepsis. Renally dose medications. Improving. Recs: -Continue ceftriaxone azithromycin total 5 days -Repeat SARS COV2 PCR -pending -HIV test -pending -legionella urine ag -pending -If clinically better okay to discharge home Levaquin 750 g p.o. once a day total 5 days will follow Avani Durham MD [facility] ([facility]) Office [phone] Subjective Date of service: 09/07/20 Principal diagnosis: pneumonia Interval history: Patient feels better, no fever since admission, no complaints Objective - Exam Narrative Exam: General appearance: Alert in NAD pleasant Eyes: anicteric sclerae, moist conjunctivae; no lid-lag; PERRLA HENT: Normocephalic, Atraumatic; normal external ears, nares open, oropharynx clear. Neck: supple, tracheal midline, no JVD Lungs: Bilateral wheezing CV: RRR no murmur Abdomen: Soft, non-tender; no masses or hepatosplenomegaly Extremities: no edema, no cyanosis Skin: No rash. Psych: no agitated Neuro: alert and oriented x 3. Moving all extermities - Constitutional Vitals: Vital Signs Temp Pulse Resp BP Pulse Ox 98.9 F 63 18 118/70 97 09/07/20 04:47 09/07/20 04:47 09/07/20 04:47 09/07/20 04:47 09/07/20 04:47 Temperature -Last 24 Hours Temperature 98.9 F Temperature 98.3 F Temperature 99.0 F Temperature 98.0 F - Labs CBC & Chem 7: 09/07/20 08:02 09/07/20 08:02 Labs: Abnormal lab results 09/06/20 09/07/20 09/07/20 Range/Units Unknown 08:02 08:02 WBC 15.1 H (4.5-11.0) K/mm3 RDW 13.1 L (13.2-15.2) % [place] % (Auto) 12.7 H (0.0-7.3) % [place] # (Auto) 1.9 H (0.0-0.8) K/mm3 Seg Neutrophils # 9.5 H (1.8-7.7) K/mm3 Potassium 3.5 L (3.6-5.0) mmol/L BUN 22 H (9-20) mg/dL Creatinine 1.5 H (0.8-1.3) mg/dL Urine Creatinine 79.8 H (0.1-20.0) mg/dL
[2020-09-07] MEDS: AZITHROMYCIN 500 MG in SODIUM CHLORIDE 0.9% 250ML 250 ML IV SCH (10:04)
[2020-09-07] MEDS: cefTRIAXone/NS 2 GM/100 ML 2 GM/100 ML BAG IV SCH (14:56)
[2020-09-07] MEDS: guaiFENesin 100 MG/5 ML ORAL LIQD PO PRN ×2 (16:45→20:47)
[2020-09-08] MEDS: guaiFENesin 100 MG/5 ML ORAL LIQD PO PRN (05:47)
[2020-09-08 05:58] LABS: Hemoglobin 14.2 gm/dl (11.8-15.2); Mean Corpuscular HGB Conc 34 % (32-34); Mean Corpuscular Volume 89 fl (84-94); Platelet Count 313 K/mm3 (140-440); Red Blood Count 4.69 M/mm3 (3.65-5.03); Red Cell Distribution Width 13.3 % (13.2-15.2)
[2020-09-08 06:09] LABS: BUN/Creatinine Ratio 12; Blood Urea Nitrogen 17 mg/dL (9-20); Hemolysis Index 5
--- NOTE | 2020-09-08 07:18 | Discharge Summary ---
Providers - Providers Date of Admission: 09/04/20 15:20 Date of discharge: 09/08/20 Attending physician: NOEMI YBARRA MD 09/04/20 14:36 Consult to Physician [CONS] Urgent Comment: Consulting Provider: GABRIELE LOPES Physician Instructions: Reason For Exam: COVID Pneumonia VALE 09/06/20 08:21 Consult to Physician [CONS] Routine Comment: Consulting Provider: OLMAN MARTELL Physician Instructions: Reason For Exam: ARF Primary care physician: SOCIAL WORKER CLINICAL Hospitalization Reason for admission: Pneumonia, VALE Condition: Stable Hospital course: 29 YO Male with obesity presents to ED for evaluation. Patient states that he had been "feeling sick" over the past 4 days with progressively worsening symptoms over the same timeframe. Patient knowledges dry cough, shortness of breath, loss of taste sense of taste, loss of sense of smell, body aches, fatigue. Patient transported to [facility] via private vehicle for further care and evaluation of the aforementioned symptoms. Patient seen and evaluated in the emergency department. Lab and imaging studies reviewed. Patient underwent ch est x-ray and was found to have bilateral pneumonia. Patient also was found to have a pulse oximetry of 86% with exertion on room air which is consistent with acute hypoxemic respiratory failure. The patient was placed on high flow supplemental oxygen in the emergency department. The patient was initiated on pneumonia protocol as well as COVID-19 protocol. Coronavirus PCR was ordered and is pending at time of admission. Patient denies fever, chills, chest pain, palpitations, skin rash, recent ill contacts, or known exposure to COVID-19. No medication listed at time of admission. No prior admission for review. Infectious disease service consulted in ED. Acute hypoxic respiratory failure. Was suspected to be COVID-19 infection. Continue O2 and wean as tolerated. Covid antigen and antibody test is negative Bilateral pneumonia. Etiology likely COVID-19 pneumonia: Patient presented with 4 days of symptoms, chest x-ray with diffuse bilateral infiltrates, admission hypoxia on room air. Inflammatory markers elevated. Patient is increased for micro-thrombotic and thromboembolic events. Sepsis. Patient meets criteria given the leukocytosis, tachycardia, tachypnea and a diagnosis of pneumonia. Morning labs are not done and he went to follow lab results VALE. Etiology secondary to sepsis/ATN. Renally dose medications. I suspect patient has underlying chronic kidney disease. Nephrology consult appreciated. Will follow BMP from this morning. Obesity hypoventilation syndrome. Continue O2 and monitor closely 09/06/30. Patient's creatinine remains elevated. I suspect patient has underlying CKD. Ultrasound is negative Covid testing found to be negative. Continue antibiotics for pneumonia per ID recommendations 09/07/2020; creatinine is trending down 1.4 this morning. WBC is trending down 15 K this morning ultrasound is negative. Covid antigen and antibody test is negative. Patient will be likely discharged tomorrow. Patient was seen and evaluated this morning. Patient was saturating well on room air and he was ambulating around without any problems. Patient discharged home with 5 days of p.o. Levaquin. His creatinine is trending down. I told him he can follow-up with his primary care physician. Patient was hemodynamically stable at the time of discharge. Disposition: TO HOME OR SELFCARE Time spent for discharge: 32-minutes - Discharge Diagnoses (1) Acute kidney injury Status: Acute (2) Bilateral pneumonia Status: Acute Qualifiers: Pneumonia type: due to unspecified organism Lung location: unspecified part of lung Qualified Code(s): J18.9 - Pneumonia, unspecified organism (3) Obesity (BMI 30.0-34.9) Status: Acute Core Measure Documentation - Palliative Care Palliative Care/ Comfort Measures: Not Applicable - Core Measures Any of the following diagnoses?: none Exam - Physical Exam Narrative exam: Not in cardiopulmonary distress. The patient appeared well nourished and normally developed. Vital signs as documented. Head exam is unremarkable. No scleral icterus . Neck is without jugular venous distension, thyromegaly, or carotid bruits. Lungs are clear to auscultation. Cardiac exam reveals regular rate and Rhythm. Abdominal exam reveals normal bowel sounds, nontender, no organomegaly. Extremities are nonedematous and both femoral and pedal pulses are normal. 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 No focal weakness. - Constitutional Vitals: Temp Pulse Resp BP Pulse Ox 98.9 F 60 18 92/51 95 09/08/20 05:37 09/08/20 05:37 09/08/20 05:37 09/08/20 05:37 09/08/20 05:37 Plan Activity: no restrictions Weight Bearing Status: Full Weight Bearing Diet: regular Follow up with: LAVERNE CHAMPAGNE MD [Primary Care Provider] - 7 Days Prescriptions: levoFLOXacin [Levaquin] 750 mg PO QDAY #5 tablet guaiFENesin [Robitussin] 200 mg PO Q4H PRN #1 bottle PRN Reason: Cough
[2020-09-08 07:28] VITALS: BP 108/87
[2020-09-08 07:59] LABS: Total Cells Counted 100
[2020-09-08 08:00] LABS: Platelet Estimate Consistent w Auto; RBC Morphology Normal
--- NOTE | 2020-09-08 08:46 | Progress Note ---
Assessment and Plan Cultures: Blood culture 09/04/2020 no growth today SARS-CoV-2 PCR negative x 2 A/P: 29-year-old man past medical history obesity admitted with acute hypoxic respiratory failure likely secondary to COVID-19 #Acute hypoxemic respiratory failure: Secondary to bilateral pneumonia, currently on 3 L nasal cannula #Bilateral pneumonia: CAP. Patient presented with 4 days of symptoms, chest x- ray with diffuse bilateral infiltrates, admission hypoxia on room air. Inflammatory markers elevated. SARS-CoV-2 PCR negative. Procalcitonin 0.2--> 0.1. SARS-CoV-2 IgG negative. #Acute sepsis: present with leukocytosis, tachycardia, tachypnea likely secondary pneumonia #VALE: Likely secondary to sepsis. Renally dose medications. Improving. #Conjunctivitis: ?red eyes today Recs: -OK to d/c home Levaquin 750 g p.o. once a day total 5 days -HIV test -pending -legionella urine ag -pending -JOJO - pending ID clinic f/u in 2 - 3 weeks Avani Durham MD [facility] ([facility]) Office [phone] Subjective Date of service: 09/08/20 Principal diagnosis: pneumonia Interval history: No complaints, no fever, feels better. Objective - Exam Narrative Exam: General appearance: Alert in NAD pleasant Eyes: anicteric sclerae, moist conjunctivae; no lid-lag; PERRLA HENT: Normocephalic, Atraumatic; normal external ears, nares open, oropharynx clear. Neck: supple, tracheal midline, no JVD Lungs: Bilateral wheezing CV: RRR no murmur Abdomen: Soft, non-tender; no masses or hepatosplenomegaly Extremities: no edema, no cyanosis Skin: No rash. Psych: no agitated Neuro: alert and oriented x 3. Moving all extermities - Constitutional Vitals: Vital Signs Temp Pulse Resp BP Pulse Ox 97.6 F 68 18 108/87 93 09/08/20 07:20 09/08/20 07:20 09/08/20 07:20 09/08/20 07:20 09/08/20 07:20 Temperature -Last 24 Hours Temperature 97.6 F Temperature 98.9 F Temperature 99.1 F Temperature 98.5 F Temperature 98.2 F - Labs CBC & Chem 7: 09/08/20 04:14 09/08/20 04:14 Labs: Abnormal lab results 09/07/20 09/07/20 09/07/20 Range/Units 08:02 08:02 14:36 WBC 15.1 H (4.5-11.0) K/mm3 RDW 13.1 L (13.2-15.2) % [place] % (Auto) 12.7 H (0.0-7.3) % [place] # (Auto) 1.9 H (0.0-0.8) K/mm3 Monocytes % (Manual) (0.0-7.3) % Seg Neutrophils # 9.5 H (1.8-7.7) K/mm3 Seg Neutrophils # Man (1.8-7.7) K/mm3 Monocytes # (Manual) (0.0-0.8) K/mm3 Potassium 3.5 L (3.6-5.0) mmol/L BUN 22 H (9-20) mg/dL Creatinine 1.5 H (0.8-1.3) mg/dL PTH Intact 71.10 H (15-65) pg/mL 09/08/20 09/08/20 Range/Units 04:14 04:14 WBC 12.7 H (4.5-11.0) K/mm3 RDW (13.2-15.2) % [place] % (Auto) (0.0-7.3) % [place] # (Auto) (0.0-0.8) K/mm3 Monocytes % (Manual) 9.0 H (0.0-7.3) % Seg Neutrophils # (1.8-7.7) K/mm3 Seg Neutrophils # Man 8.0 H (1.8-7.7) K/mm3 Monocytes # (Manual) 1.1 H (0.0-0.8) K/mm3 Potassium (3.6-5.0) mmol/L BUN (9-20) mg/dL Creatinine 1.4 H (0.8-1.3) mg/dL PTH Intact (15-65) pg/mL
--- NOTE | 2020-09-08 08:52 | Progress Note ---
Assessment and Plan # Acute Kidney Injury: no clear baseline, does have risk factors for CKD including obesity. Creatinine has improved from 2.0/2.1 on admission to 1.6- >1.4 this AM, suspect pre-renal and/or tubular injury in setting of acute illness. - supportive measures including IVF as tolerated - strict Is/Os - BP stable - sending serologies including HIV, consider biopsy based on serologies but likely no indication - PTH WNL, may be indicative of mild CKD - UP/C WNL, urinalysis reviewed with moderate blood - ultrasound reviewed, no acute obstruction noted, increased echogenicity which would be unusual for his age but may have underlying CKD - avoid nephrotoxins - daily labs - no indication for renal replacement therapy acutely - will arrange outpatient follow up on discharge # Acute hypoxic respiratory failure: pneumonia vs COVID-19, antibiotics per primary/ID # Sepsis, Leukocytosis: BP stable # obesity hypoventilation syndrome Thank you for this consult, we will continue to follow closely with you for renal related issues. Subjective Date of service: 09/08/20 Principal diagnosis: pneumonia Interval history: No acute events notes, feeling well Objective - Exam Narrative Exam: Constitutional: no acute distress Head: NC/AT Neck: supple Lungs: clear to auscultation, on NC CV: RRR, no M/R/G Abdomen: soft, non-tender, bowel sounds present Back: nontender Extremities: no edema, pulses WNL Skin: intact Neuro: no focal deficits, alert and oriented x4 - Vital Signs Vital signs: Vital Signs - 12hr 09/07/20 09/07/20 09/08/20 21:31 21:49 05:37 Temperature 99.1 F 98.9 F Pulse Rate 79 60 Respiratory 18 18 Rate Blood Pressure 151/84 Blood Pressure 92/51 [Right] O2 Sat by Pulse 97 93 95 Oximetry 09/08/20 07:20 Temperature 97.6 F Pulse Rate 68 Respiratory 18 Rate Blood Pressure 108/87 Blood Pressure [Right] O2 Sat by Pulse 93 Oximetry - Lab 09/08/20 04:14 09/08/20 04:14 Most recent lab results Calcium 9.0 mg/dL (8.4-10.2) 09/08/20 04:14 Magnesium 2.30 mg/dL (1.7-2.3) 09/04/20 13:38 Urine Creatinine 79.8 mg/dL (0.1-20.0) H 09/06/20 Unknown Urine Total Protein 8 mg/dL (5-11.8) 09/06/20 Unknown Medications & Allergies - Medications Allergies/Adverse Reactions: Allergies No Known Allergies Allergy (Unverified 09/04/20 12:46) Home Medications: Home Medications Medication Instructions Recorded Confirmed Last Taken Type guaiFENesin [Robitussin] 200 mg PO Q4H PRN #1 bottle 09/08/20 Unknown Rx levoFLOXacin [Levaquin] 750 mg PO QDAY #5 tablet 09/08/20 Unknown Rx Active Medications: Generic Name Dose Route Start Last Admin Trade Name Freq PRN Reason Stop Dose Admin Acetaminophen 650 mg 09/04/20 14:26 09/04/20 18:37 Tylenol PO 650 mg Q4H PRN Administration Pain MILD(1-3)/Fever >100.5/MCKENZIE Azithromycin 500 mg 09/08/20 10:00 Zithromax PO 09/08/20 10:01 QDAY MONI Guaifenesin 200 mg 09/07/20 15:48 09/08/20 05:47 Robitussin PO 200 mg Q4H PRN Administration Cough Heparin Sodium (Porcine) 5,000 unit 09/04/20 22:00 09/07/20 21:15 Heparin SUB-Q 5,000 unit Q12HR MONI Administration Ceftriaxone Sodium 2 gm in 100 mls @ 200 mls/hr 09/04/20 15:00 09/07/20 14:56 Rocephin/Ns 2 Gm/100 Ml IV 09/08/20 15:29 200 mls/hr Q24H MONI Administration Protocol Ondansetron HCl 4 mg 09/04/20 14:26 Zofran IV Q8H PRN Nausea And Vomiting Sodium Chloride 10 ml 09/04/20 22:00 09/07/20 21:16 Sodium Chloride Flush Syringe 10 Ml IV 10 ml BID MONI Administration Sodium Chloride 10 ml 09/04/20 14:26 Sodium Chloride Flush Syringe 10 Ml IV PRN PRN LINE FLUSH
[2020-09-08] MEDS: HEPARIN 5,000 UNIT/1 ML VIAL SUB-Q SCH (09:59)
[2020-09-08] MEDS ORDERED: AZITHROMYCIN 250 MG TAB PO SCH (10:00)
[2020-09-10 06:59] LABS: HIV-1 Antibody Differentiation SEE SCANNED RESULT; HIV-2 Antibody Differentiation SEE SCANNED RESULT
[2020-09-10 12:33] LABS: ANA Screen, IFA Negative (Negative)
== END 2020-09-08 12:19 | disposition home or self-care (01) | DRG 871 ==
LOC: ED 12:42 → 3A 15:20
PROVIDERS: ADMIT Internal Medicine; ATTEND Internal Medicine
DX: A41.9 Sepsis, unspecified organism (principal); J18.9 Pneumonia, unspecified organism; J96.01 Acute respiratory failure with hypoxia; N17.0 Acute kidney failure with tubular necrosis; E66.2 Morbid (severe) obesity with alveolar hypoventilation; Z20.828 Contact with and (suspected) exposure to other viral communicable diseases; Z68.32 Body mass index [BMI] 32.0-32.9, adult
CPT/HCPCS: 36415; 71046; 76770; 80048; 80076; 81001; 82140; 82570; 82728; 83615; 83735; 83970; 84145; 84156; 84165; 85007; 85025; 85379; 86021; 86038; 86140; 86160; 86689; 87040; 87400; 87536; 94760; 96365; 96366; 96375; G0378; 87502; J0456; J0696; J1100; J1644; J2920; J7030; J7050; U0003